=== PATIENT | male | born 1985 | race Caucasian/White ===

== ENCOUNTER 2016-05-16 16:45 | Emergency (ER) | payer MEDICARE, MEDICAID ==
[2016-05-16 17:06] VITALS: BP 121/71
--- NOTE | 2016-05-16 18:35 | RAD ---
Indication: Cough. 2 views of the chest including dual energy PA views demonstrates no mediastinal shift. Heart is of normal size and configuration. Lung [place] demonstrate no pleural fluid, pneumonia or pneumothorax. IMPRESSION: No active cardiopulmonary disease is noted.
--- NOTE | 2016-05-16 18:38 | UC ---
FLU HPI - HPI Summary HPI Summary: ONE WEEK OF COUGH, SINUS CONGESTION. TODAY HAD FEVER 100F, AND SHORTNESS OF BREATH. - History of Current Complaint Hx Obtained From: Patient, Family/Area Representative Onset/Duration: Gradual Onset, Lasting Weeks, Worse Since - YESTERDAY Severity Currently: Moderate Severity Initially: Moderate Associated Signs & Symptoms: Positive: F/C, Cough, Nasal Congestion Related Hx: Possible Flu/Infectious Exposure <Mike Richey - Last Filed: 05/16/16 18:34> <Mateo De Los Santos - Last Filed: 05/19/16 11:08> - History of Current Complaint Chief Complaint: UCRespiratory Stated Complaint: COLD SYMPTOMS Time Seen by Provider: 05/16/16 16:59 - Allergy/Home Medications Allergies/Adverse Reactions: Allergies Allergy/AdvReac Type Severity Reaction Status Date / Time Bee Venom Allergy Severe REDNESS, Verified 05/16/16 17:06 SWELLING PMH/Surg Hx/FS Hx/Imm Hx Previously Healthy: Yes Respiratory History Of: Denies: Asthma - Surgical History Surgical History: Yes Surgery Procedure, Year, and Place: DENTAL - Family History Known Family History: Positive: Other - he does not know his family medical history - Social History Occupation: Disabled Lives: Assisted Living Alcohol Use: None Substance Use Type: None Smoking Status (MU): Never Smoked Tobacco <KaidenMike - Last Filed: 05/16/16 18:34> Review of Systems Constitutional: Fever, Chills Skin: Negative Eyes: Negative ENT: Nasal Discharge Respiratory: Cough Cardiovascular: Negative Gastrointestinal: Negative Genitourinary: Negative Motor: Negative Neurovascular: Negative Musculoskeletal: Negative Neurological: Negative Psychological: Negative All Other Systems Reviewed And Are Negative: Yes <KaidenMike - Last Filed: 05/16/16 18:34> Physical Exam Triage Information Reviewed: Yes Appearance: No Pain Distress, Well-Nourished, Ill-Appearing - MODERATE Vital Signs: Initial Vital Signs Temp 98.4 F 05/16/16 16:56 Pulse 112 05/16/16 16:56 Resp 16 05/16/16 16:56 BP 121/71 05/16/16 16:56 Pulse Ox 98 05/16/16 16:56 Vital Signs Reviewed: Yes Eye Exam: Normal Eyes: Positive: Conjunctiva Clear ENT: Positive: Normal ENT inspection, Hearing grossly normal, Pharynx normal, Nasal congestion, TMs normal Dental Exam: Normal Neck exam: Normal Neck: Positive: Supple, Nontender Respiratory Exam: Other - COUGH Respiratory: Positive: Chest non-tender, Lungs clear, Normal breath sounds, No respiratory distress, No accessory muscle use Cardiovascular Exam: Normal Cardiovascular: Positive: RRR, No Murmur, Pulses Normal, Brisk Capillary Refill Abdominal Exam: Normal Abdomen Description: Positive: Nontender, No Organomegaly Musculoskeletal Exam: Normal Musculoskeletal: Positive: Strength Intact Neurological Exam: Normal Psychological Exam: Normal Psychological: Positive: Normal Response To Family Skin Exam: Normal <Mike Richey - Last Filed: 05/16/16 18:34> Vital Signs: Initial Vital Signs Temp 98.4 F 05/16/16 16:56 Pulse 112 05/16/16 16:56 Resp 16 05/16/16 16:56 BP 121/71 05/16/16 16:56 Pulse Ox 98 05/16/16 16:56 <Mateo De Los Santos - Last Filed: 05/19/16 11:08> Flu Course/Dx - Differential Dx/Diagnosis Differential Diagnosis/HQI/PQRI: Bronchitis, Influenza, Pneumonia, Upper Respiratory Infection Provider Diagnoses: INFLUENZA <Mike Richey - Last Filed: 05/16/16 18:34> - Course Course Of Treatment: I was available for consultation. This patient was seen by mid level provider. The patient was not presented, seen, or examined by me. WR. <Mateo De Los Santos - Last Filed: 05/19/16 11:08> Discharge <Mike Richey - Last Filed: 05/16/16 18:34> <Mateo De Los Santos - Last Filed: 05/19/16 11:08> - Discharge Plan Condition: Stable Disposition: HOME Prescriptions: Oseltamivir CAP* [Tamiflu CAP*] 75 mg PO BID #10 cap Patient Education Materials: Influenza (ED) Referrals: Devin Rod MD [Primary Care Provider] -
== END 2016-05-16 18:27 | disposition home or self-care (01) ==
LOC: UCEAST 16:45
DX: J11.1 Influenza due to unidentified influenza virus with other respiratory manifestations (principal)
CPT/HCPCS: 71020; 87502; 99212; G0463

== ENCOUNTER 2017-02-27 16:10 | Emergency (ER) | payer MEDICARE, MEDICAID ==
[2017-02-27 16:52] VITALS: BP 116/62
--- NOTE | 2017-02-27 17:33 | RAD ---
INDICATION: Cough for 10 days. Bronchitis. COMPARISON: May 16, 2016 TECHNIQUE: Dual energy PA and routine lateral views of the chest were obtained. REPORT: Elevated lung volumes with increased AP thoracic diameter. No pulmonary infiltrate, focal pulmonary lesion, pleural effusion, pneumothorax. The heart, pulmonary vasculature, and mediastinal contours are unremarkable. Multilevel thoracic degenerative spondylosis. IMPRESSION: Stigmata of probable obstructive pulmonary disease. No evidence for pneumonia or other acute intrathoracic process.
[2017-02-27] MEDS ORDERED: Azithromycin TAB* 250 MG PO ONE (17:46)
[2017-02-27] MEDS ORDERED: Albuterol HFA INHALER* 8 gm MDI INH ONE (17:47)
--- NOTE | 2017-02-27 17:54 | UC ---
Respiratory Complaint HPI - HPI Summary HPI Summary: 31 yo male with cough x 10 days no fever has post nasal drip has been using nebulizer at home mild MR her with mother - History of Current Complaint Chief Complaint: UCGeneralIllness Stated Complaint: URI Time Seen by Provider: 02/27/17 16:53 Hx Obtained From: Patient, Family/Diesel Engine Engineer - mmom Onset/Duration: Gradual Onset, Lasting Weeks Timing: Constant Severity Initially: Mild Severity Currently: Mild Pain Intensity: 0 Pain Scale Used: 0-10 Numeric Character: Cough: Productive Aggravating Factors: Nothing Alleviating Factors: Nothing Associated Signs And Symptoms: Positive: Wheezing, Nasal Congestion, Sinus Discomfort - Allergies/Home Medications Allergies/Adverse Reactions: Allergies Allergy/AdvReac Type Severity Reaction Status Date / Time Bee Venom Allergy Severe REDNESS, Verified 05/16/16 17:06 SWELLING Amoxicillin Allergy Rash Verified 02/27/17 16:44 Home Medications: Home Medications Albuterol 2.5MG/3ML (0.083%)* [Ventolin 2.5 MG/3 ML NEB.HUYEN*] 2.5 mg INH Q6H 03/16 [History Confirmed 02/27/17] Loratadine [Claritin 10 MG CAP] 10 mg PO DAILY 02/27/17 [History Confirmed 02/27] PMH/Surg Hx/FS Hx/Imm Hx Previously Healthy: Yes Respiratory History: Asthma Neurological History: Seizures - Surgical History Surgical History: Yes Surgery Procedure, Year, and Place: DENTAL surgery when child - Family History Known Family History: Positive: Other - he does not know his family medical history - Social History Alcohol Use: None Substance Use Type: None Smoking Status (MU): Never Smoked Tobacco - Immunization History Most Recent Influenza Vaccination: 2017 Review of Systems Constitutional: Negative Skin: Negative Eyes: Negative ENT: Nasal Discharge, Sinus Congestion, Sinus Pain/Tenderness Respiratory: Cough Cardiovascular: Negative Gastrointestinal: Negative Genitourinary: Negative Motor: Negative Neurovascular: Negative Musculoskeletal: Negative Neurological: Negative Psychological: Negative Is Patient Immunocompromised?: No All Other Systems Reviewed And Are Negative: Yes Physical Exam Triage Information Reviewed: Yes Appearance: Well-Appearing, No Pain Distress, Well-Nourished Vital Signs: Initial Vital Signs Temp 98.2 F 02/27/17 16:46 Pulse 96 02/27/17 16:46 Resp 18 02/27/17 16:46 BP 116/62 02/27/17 16:46 Pulse Ox 99 02/27/17 16:46 Vital Signs Reviewed: Yes Eyes: Positive: Conjunctiva Clear ENT: Positive: Hearing grossly normal, Nasal congestion, Nasal drainage, Uvula midline. Negative: Muffled voice, Dental tenderness, Sinus tenderness Neck: Positive: Supple, Nontender Respiratory Exam: Normal Respiratory: Positive: Lungs clear, Normal breath sounds, No respiratory distress Cardiovascular: Positive: RRR, No Murmur Bowel Sounds: Positive: Present Musculoskeletal: Positive: ROM Intact, No Edema Neurological: Positive: Alert Psychological Exam: Normal Skin Exam: Normal UC Diagnostic Evaluation - Laboratory O2 Sat by Pulse Oximetry: 99 - normal/not hypoxic - Radiology Xray Interpretation: No Acute Changes Radiology Interpretation Completed By: Radiologist Respiratory Course/Dx - Differential Dx/Diagnosis Provider Diagnoses: bronchitis Discharge - Discharge Plan Condition: Stable Disposition: HOME Prescriptions: Albuterol 2.5MG/3ML (0.083%)* [Ventolin 2.5 MG/3 ML NEB.HUYEN*] 2.5 mg INH QID PRN #1 neb.huyen PRN Reason: Wheezing Azithromycin TAB* [Zithromax TAB*] 250 mg PO DAILY #4 tab Patient Education Materials: Sinusitis (ED), Acute Bronchitis (ED) Forms: *Gen. Provider Communication Referrals: Devin Rod MD [Primary Care Provider] -
== END 2017-02-27 18:24 | disposition home or self-care (01) ==
LOC: UCEAST 16:10
DX: J45.909 Unspecified asthma, uncomplicated (principal); R56.9 Unspecified convulsions; Z88.1 Allergy status to other antibiotic agents; Z91.030 Bee allergy status
CPT/HCPCS: 71046; 99213; A9270-GY; G0463

== ENCOUNTER 2017-10-06 13:08 | Emergency (ER) | payer MEDICARE, MEDICAID ==
--- OUTSIDE RECORDS SUMMARY | 2017-10-06 13:17 | XMS REPORT ---
:1985 External Reference #:[id number] Author Organization [facility] Address [address] [place] [address] [place] [address] Phone [phone] Care Team Providers Name Role Phone Devin Rod MD Primary Care Physician Unavailable Payers Type Date Identification Numbers Payment Provider Subscriber Medicare Primary Effective: Policy Number: Medicare Phil Aguirre 2005 [id number] PayID: [id number] [address] [place] [address] Medigap Part B Policy Number: [id number] Medicaid Phil Aguirre Group Name: 1 1 [address] PayID: [id number] [place] [address] Problems Date Description Provider Status Onset: 07/23/2014 Epilepsy Nanda Orta NP Active Onset: 03/11/2015 Chronic motor tic disorder Betsy Melendez M.D. Active Family History Date Family Member(s) Problem(s) Comments Father due to Emphysema () Mother No Current Problems Siblings 2 2 half siblings Social History Type Date Description Comments Marital Status Single Lives With Adult family home Occupation [facility] [employer] Cigarette Use Never Smoked Cigarettes ETOH Use Never used alcohol Smoking Patient has never smoked Recreational Drug Use Denies Drug Use Daily Caffeine Consumes on average 5 cups of regular coffee per day Daily Caffeine Soda Two or three 2 Liters on the weekends Exercise Type/Frequency Exercises regularly Allergies, Adverse Reactions, Alerts Date Description Reaction Status Severity Comments 12/20/2012 NKDA active 07/23/2014 Bee Sting active Medications Medication Date Status Form Strength Qnty SIG Indications Ordering Provider Rashaad Friedman 06/19 Active Aerosol 100-25mcg 60uni take 1 J45.909 April /2017 /Inh ts inhalation Honorio, daily. Lamictal 04/29 Active Tablets 200mg 60tab take 1 by G40.909 s mouth twice Cowdery, a day M.D. Benadryl Active Capsules 25mg 30cap po qid prn Unknown Allergy /0000 s Guiatuss ac Active Syrup 100-10mg/ 200ml 10cc qid prn Unknown /0000 5ML Ibuprofen Active Tablets 200mg 100ta 1 tab po q Unknown /0000 bs 6h prn Fernley Bismuth Active Suspension 262mg/15M 30 cc po q Unknown /0000 L 6h prn Acetaminophen Active Tablets 325mg 120ta take 2 tabs Unknown /0000 bs po q4hrs prn for minor pain or elevated temp Aluminum Active Solution 20% 180un apply daily Unknown Chloride /0000 its as needed Fluticasone Active Suspension 50mcg/Act 2 sprays Unknown Propionate /0000 each nostril qd. Xyzal Allergy Active Tablets 5mg 1 by mouth Unknown 24HR /0000 every day in the morning Ranitidine HCL Active Tablets 150mg take one Unknown /0000 tablet by mouth twice a day Proair HFA 06/19 Hx Aerosol 108(90Bas 17gm 2 puffs by J45.909 Yaritza S. /2017 e) mouth every Foster, - mcg/Act 4 hours as N.P. 07/12 Ventolin HFA 06/19 Hx Aerosol 108(90Bas 24gm 1 unit puff April e) every 6 Honorio, - mcg/Act hours as 07/12 needed Tamiflu 02/25 Hx Capsules 75mg 10cap 1 by mouth Mikey s twice a day John Paul Hannon, - x 5 days M.D.,FACP 05/14 Lamotrigine 11/09 Hx Tablets 25mg 28tab take 2 G40.909 s tablets by Nora, - mouth at M.D. 01/17 bedtime with 150mg tablet x 2 weeks. Lamotrigine 11/09 Hx Tablets 200mg 60tab In 2 weeks, G40.909 s stop Nora, - lamotrigine M.D. 04/29 25mg and /2017 150mg tablets, and start 200mg; 1 tablet by mouth twice a day Lamotrigine 11/19 Hx Tablets 150mg 60tab 1 tab by s mouth twice Cowdery, - a day M.D. 11/[address] 20mg 30cap 1 po qd Unknown s - 05/27 L-Tmyaxd-Gfkenv Hx Suspension 30 cc po 4x Unknown -Lido 1-1- daily prn. - Swish and 11/[address] Hx Table[address] 20mg 1 by mouth Unknown daily in the - morning on 07/22 stomach Triamcinolone Hx Paste 0.1% apply / " Unknown Acetonide to oral - ulcer bid 07/19 Vital Signs Date Vital Result Comment 09/19/2017 Height 67 inches 5'7" Weight 211.50 lb Heart Rate 88 /min BP Systolic Sitting 120 mmHg Lue large cuff BP Diastolic Sitting 78 mmHg Lue large cuff Respiratory Rate 20 /min O2 % BldC Oximetry 97 % On Ra BMI (Body Mass Index) 33.1 kg/m2 07/20/2017 Height 67 inches 5'7" Weight 209.25 lb Heart Rate 96 /min BP Systolic Sitting 128 mmHg BP Diastolic Sitting 80 mmHg Respiratory Rate 16 /min BMI (Body Mass Index) 32.8 kg/m2 06/19/2017 Height 67 inches 5'7" Weight 206.00 lb Heart Rate 98 /min BP Systolic Sitting 132 mmHg Rue regular cuff BP Diastolic Sitting 78 mmHg Rue regular cuff Respiratory Rate 16 /min O2 % BldC Oximetry 98 % BMI (Body Mass Index) 32.3 kg/m2 05/15/2017 Height 67 inches 5'7" Weight 201.00 lb Heart Rate 84 /min BP Systolic Sitting 110 mmHg BP Diastolic Sitting 68 mmHg Respiratory Rate 14 /min O2 % BldC Oximetry 96 % BMI (Body Mass Index) 31.5 kg/m2 Neck Circumference in inches 96 01/18/2017 Height 67 inches 5'7" Weight 191.38 lb Heart Rate 79 /min BP Systolic Sitting 124 mmHg BP Diastolic Sitting 70 mmHg Respiratory Rate 16 /min BMI (Body Mass Index) 30.0 kg/m2 11/09/2016 Height 67 inches 5'7" Weight 200.00 lb Heart Rate 80 /min BP Systolic Sitting 110 mmHg BP Diastolic Sitting 70 mmHg Respiratory Rate 18 /min BMI (Body Mass Index) 31.3 kg/m2 10/14/2016 Height 67 inches 5'7" Weight 196.50 lb Heart Rate 84 /min BP Systolic Sitting 124 mmHg BP Diastolic Sitting 70 mmHg Respiratory Rate 16 /min BMI (Body Mass Index) 30.8 kg/m2 09/02/2015 Height 67 inches 5'7" Weight 197.00 lb Heart Rate 84 /min BP Systolic Sitting 122 mmHg BP Diastolic Sitting 70 mmHg Respiratory Rate 16 /min BMI (Body Mass Index) 30.9 kg/m2 03/11/2015 Height 67 inches 5'7" Weight 194.00 lb Heart Rate 76 /min BP Systolic Sitting 112 mmHg BP Diastolic Sitting 78 mmHg Respiratory Rate 14 /min BMI (Body Mass Index) 30.4 kg/m2 07/23/2014 Height 67 inches 5'7" Weight 201.00 lb Heart Rate 76 /min BP Systolic Sitting 124 mmHg BP Diastolic Sitting 66 mmHg Respiratory Rate 16 /min BMI (Body Mass Index) 31.5 kg/m2 01/16/2014 Height 67 inches 5'7" Weight 191.00 lb Heart Rate 62 /min BP Systolic Sitting 110 mmHg BP Diastolic Sitting 68 mmHg Respiratory Rate 16 /min BMI (Body Mass Index) 29.9 kg/m2 05/27/2013 Heart Rate 80 /min BP Systolic Sitting 120 mmHg BP Diastolic Sitting 76 mmHg Respiratory Rate 16 /min 12/20/2012 Heart Rate 80 /min BP Systolic Sitting 128 mmHg BP Diastolic Sitting 76 mmHg Respiratory Rate 18 /min 06/20/2012 Heart Rate 80 /min BP Systolic Sitting 118 mmHg BP Diastolic Sitting 76 mmHg Respiratory Rate 18 /min Results Test Date Test Result H/L Range Note Laboratory test 12/22/2016 Lamotrigine 6.8 g/mL 2.5 - 15.0 1 finding (Lamictal) Laboratory test 10/26/2016 Lamotrigine 4.5 g/mL 2.5 - 15.0 2 finding (Lamictal) Laboratory test 03/13/2015 Lamotrigine 6.4 g/mL 2.5 - 15.0 3 finding (Lamictal) CBC Auto Diff 06/03/2013 White Blood Count 4.7 10^3/uL Low 4.8-10.8 Red Blood Count 4.74 10^6/uL 4.0-5.4 Hemoglobin 14.8 g/dL 14.0-18.0 Hematocrit 44 % 42-52 Mean Corpuscular Volume 93 fL 80-94 Mean Corpuscular Hemoglobin 31 pg 27-31 Mean Corpuscular HGB Conc 34 g/dL 31-36 Red Cell Distribution Width 14 % 10.5-15 Platelet Count 223 10^3/uL 150-450 Mean Platelet Volume 8 um3 7.4-10.4 Abs Neutrophils 3.0 10^3/uL 1.5-7.7 Abs Lymphocytes 1.3 10^3/uL 1.0-4.8 Abs Monocytes 0.3 10^3/uL 0-0.8 Abs Eosinophils 0.1 10^3/uL 0-0.6 Abs Basophils 0 10^3/uL 0-0.2 Abs Nucleated RBC 0.01 10^3/uL Granulocyte % 63.5 % 38-83 Lymphocyte % 27.0 % 25-47 Monocyte % 7.4 % 1-9 Eosinophil % 1.9 % 0-6 Basophil % 0.2 % 0-2 Nucleated Red Blood Cells % 0.2 Laboratory test finding 06/03/2013 Lamotrigine 4.5 g/mL 2.5 - 15.0 4 Laboratory test finding 06/23/2012 Lamotrigine 4.2 g/mL 2.5 - 15.0 5 1 ADDITIONAL INFORMATION This test was developed and its performance characteristics determined by [facility] in a manner consistent with CLIA requirements. This test has not been cleared or approved by the U.S. Food and Drug Administration. Test Performed by: [facility] [employer] - [address] [address] 2 ADDITIONAL INFORMATION This test was developed and its performance characteristics determined by [facility] in a manner consistent with CLIA requirements. This test has not been cleared or approved by the U.S. Food and Drug Administration. Test Performed by: [facility] [address] [place] [address] 3 Test Performed by: [address] [address] Edi Coordinator: Gildardo Cook II, M.D., Ph.D. 4 Test Performed by: [address] [address] Edi Coordinator: Pradeep Bergman III, M.D. 5 Test Performed by: [address] [address] Edi Coordinator: Pradeep Bergman III, M.D. Procedures Date CPT Code Description Status 05/29/2017 20546 Plethysmography Determination Lung Volumes & Per Airway Completed Resist 05/29/2017 09700 Pulmonary Function><Bronchodil Completed 10/24/2016 29724 EEG Recording Awake & Asleep Completed Encounters Type Date Location Provider CPT E/M Dx Office Visit 09/19/2017 [facility] [place] [address] J45.909 11:30a [facility] E66.09 Office Visit 07/20/2017 9:00a [facility] Betsy Melendez M.D. 22744 G40.909 [facility] F95.1 Office Visit 06/19/2017 2:30p [facility] Yaritza Owens, N.P. 20244 R05 [facility] J45.909 Office Visit 05/15/2017 2:00p [facility] [place] [address] J98.4 [facility] R05 Office Visit 05/03/2017 10:00a [facility] [place] [address] D22.5 D18.01 Office Visit 01/18/2017 2:30p [facility] Betsy Melendez M.D. 18512 G40.909 [facility] F95.1 Office Visit 11/09/2016 1:15p [facility] Betsy Melendez M.D. 71671 G40.909 [facility] F95.1 Office Visit 10/14/2016 3:00p [facility] Betsy Melendez M.D. 52126 G40.909 [facility] F95.1 Z79.899 Office Visit 09/02/2015 11:45a [facility] Betsy Melendez M.D. 37708 G40.909 [facility] F95.1 Office Visit 03/11/2015 11:30a [facility] Betsy Melendez M.D. 06669 G40.909 [facility] F95.1 Office Visit 07/23/2014 11:30a [facility] Nanda Orta, SARAH 23782 345.90 [facility] Office Visit 01/16/2014 11:30a [facility] Betsy Melendez 77145 345.90 [facility] M.D. 307.22 319 Office Visit 05/27/2013 11:15a [facility] Betsy Melendez M.D. 34862 345.90 [facility] 307.22 319 Office Visit 12/20/2012 11:30a [facility] Betsy Melendez M.D. 95361 345.90 [facility] 307.22 319 Office Visit 06/20/2012 11:00a [facility] Betsy Melendez M.D. 03572 345.90 [facility] 307.22 Office Visit 12/21/2011 11:30a [facility] Betsy Melendez M.D. 73663 345.90 [facility] 307.22 Plan of Care Future Appointment(s):03/22/2018 9:15 am - April Olmedo MD at [facility]01/26/2018 2:00 pm - Betsy Meelndez M.D. at [facility]09/19/2017 - April Olmedo MDJ45.909 Unspecified asthma, uncomplicatedFollow up:6 [id number] Other obesity due to excess calories
[2017-10-06 13:44] VITALS: BP 121/80
--- NOTE | 2017-10-06 15:19 | UC ---
Complaint Male HPI - HPI Summary HPI Summary: accompanied by pillowcase sewer, states this morning noticed blood in the urine. Denies fever, chills, flank pain, frequency, urgency or burning urination. Non circumcized, states there is no redness or irritation around penis and foreskin is retractable. - History of Current Complaint Chief Complaint: UCGU Stated Complaint: BLOOD IN URINE Time Seen by Provider: 10/06/17 14:44 Hx Obtained From: Patient Onset/Duration: Sudden Onset, Lasting Hours Timing: Constant Severity Initially: Mild Severity Currently: None Pain Intensity: 0 Location: None Aggravating Factor(s): Voiding Alleviating Factor(s): Nothing Associated Signs And Symptoms: Positive: Negative - Risk Factors Testicular Torsion: Negative - Allergies/Home Medications Allergies/Adverse Reactions: Allergies Allergy/AdvReac Type Severity Reaction Status Date / Time amoxicillin Allergy Hives Verified 10/06/17 13:45 bee venom protein (honey bee) Allergy anaph Verified 10/06/17 13:45 Home Medications: Home Medications LevoCETirizine TAB (NF) [Xyzal TAB (NF)] 5 mg PO DAILY 10/06/17 [History Confirmed 10/06/17] PMH/Surg Hx/FS Hx/Imm Hx Previously Healthy: Yes Respiratory History: Asthma Neurological History: Seizures - Surgical History Surgical History: Yes Surgery Procedure, Year, and Place: DENTAL surgery when child/ extraction - Family History Known Family History: Positive: Other - he does not know his family medical history - Social History Alcohol Use: None Substance Use Type: None Smoking Status (MU): Never Smoked Tobacco - Immunization History Most Recent Influenza Vaccination: 2017 Review of Systems Constitutional: Negative Genitourinary: Hematuria All Other Systems Reviewed And Are Negative: Yes Physical Exam Triage Information Reviewed: Yes Appearance: Well-Appearing, No Pain Distress, Obese Vital Signs: Initial Vital Signs Temp 98 F 10/06/17 13:41 Pulse 82 10/06/17 13:41 Resp 16 10/06/17 13:41 BP 121/80 10/06/17 13:41 Pulse Ox 100 10/06/17 13:41 Vital Signs Reviewed: Yes Eyes: Positive: Conjunctiva Clear ENT: Positive: Hearing grossly normal, Pharynx normal Dental: Positive: Gross Decay/Caries @ Neck: Positive: Supple, Nontender, No Lymphadenopathy Respiratory: Positive: Chest non-tender, Lungs clear, Normal breath sounds, No respiratory distress Cardiovascular: Positive: RRR, No Murmur, Pulses Normal, Brisk Capillary Refill Abdomen Description: Positive: Nontender, Other: - limited by lack of cooperation from patient, cannot relax abdominal wall Bowel Sounds: Positive: Present Musculoskeletal Exam: Normal Complaint Male Course/Dx - Course Course Of Treatment: UA postive for leukos and blood. Urine culture and GC/ chlamydia sent - Differential Dx/Diagnosis Provider Diagnoses: UTI Discharge - Sign-Out/Discharge Documenting (check all that apply): Patient Departure - Discharge Plan Condition: Stable Disposition: HOME Prescriptions: Nitrofurantoin Monohyd/M-Cryst [Macrobid 100 mg Capsule] 100 mg PO BID 7 Days # 14 cap Patient Education Materials: Nitrofurantoin Macrocrystals (By mouth), Urinary Tract Infection in Men (ED) Referrals: Kim Jones NP [Primary Care Provider] - - Billing Disposition and Condition Condition: STABLE Disposition: Home
--- NOTE | 2017-10-08 15:41 | UC ---
- Progress Note Progress Note: Urine culture final with no growth. Strongly recommend that pt be evaluated by Urology due to gross hematuria without growth on culture. Continue antibiotic. Discharge - Sign-Out/Discharge Documenting (check all that apply): Post-Discharge Follow Up - Discharge Plan Condition: Stable Disposition: HOME Prescriptions: Nitrofurantoin Monohyd/M-Cryst [Macrobid 100 mg Capsule] 100 mg PO BID 7 Days # 14 cap Patient Education Materials: Nitrofurantoin Macrocrystals (By mouth), Urinary Tract Infection in Men (ED) Referrals: Kim Jones NP [Primary Care Provider] - Rick Bella MD [Medical Doctor] - As Soon As Possible - Billing Disposition and Condition Condition: STABLE Disposition: Home
== END 2017-10-06 15:37 | disposition home or self-care (01) ==
LOC: UCEAST 13:08
DX: N39.0 Urinary tract infection, site not specified (principal); R31.9 Hematuria, unspecified; Z91.030 Bee allergy status; Z88.0 Allergy status to penicillin
CPT/HCPCS: 81003; 87086; 87491; 87591; 99201; G0463